=== PATIENT | female | born 1990 | race Two or more races ===

== ENCOUNTER 2025-01-22 11:37 | Outpatient (REF) | payer OTHER, SELFPAY ==
[2025-01-23 09:45] LABS: Bacterial Vaginosis PCR POSITIVE (Negative); Candida Group PCR DETECTED (Not Detect); Candida glab krusei PCR DETECTED (Not Detect); Trichomonas vaginalis PCR NOT DETECTED (Not Detect)
[2025-01-23 10:16] LABS: CT PCR NOT DETECTED (Not Detect.); NG PCR NOT DETECTED (Not Detect.)
== END 2025-01-22 11:38 | disposition home or self-care (01) ==
LOC: HO.LNP 11:37
PROVIDERS: PCP Nurse Practitioner Family; Visit Provider Advanced Practice Midwife
DX: Z01.411 Encounter for gynecological examination (general) (routine) with abnormal findings (principal); B37.31 Acute candidiasis of vulva and vagina
CPT/HCPCS: 81515; 87491; 87591; 99395; 99459

== ENCOUNTER 2025-01-22 11:37 | Outpatient (AMB) | payer OTHER, SELFPAY ==
--- NOTE | 2025-01-22 11:30 | MHC.OFFVIS ---
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 She broke up with a partner that she was trying to have a baby with and she has been dating somebody else for the last 2 months she and this person have talked about possibly having a child together and they might be interested but the relationship is new so she has to see yet she is not contraceptive thing because she is open to . She has been tracking her cycle and she reviewed with me her periods for the last 2 months include the following November 18 to . Her next menses after that was December 09 to . And then her menses after that came January 06 to January 11. So these last 2 cycles were 22 days and 28 days respectively. Reviewed that the alessandro in her phone indicated days of ovulation that did not make sense according to the cycle. She is keeping track of when she has sex but it has not currently been around the time of ovulation. She wants to know if it is normal that she was not able to get and if there is anything wrong with her. Her cycles are more or less regular she is healthy she does work out she tries to take care of herself. 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 She had vaginal itching about a month or so ago and she could not get an appointment with us [facility] and apparently they also gave a cream but she did not use the cream. the fluconazole worked but she is feeling itchy and burny again and she thinks she might have yeast. She is dressed up today for work and her underwear and clothing is 100% nylon. [facility] Medical History (Updated 01/22/25 @ 13:09 by Trina Galarza CNM) delivery delivered No pertinent past medical history Surgical History No pertinent past surgical history Family History (Updated 01/22/25 @ 11:45 by Nimo Joseph MA) Father Depression Mother Depression Cervical cancer Family/Other FH: mental illness Maternal Aunt Breast cancer Social History Housing: Apartment Alcohol intake: former Patient Tobacco Use Status: Never used Tobacco e-Cigarette/Vaping Use: Former Use Substance Use Type: Marijuana Patient : No service: No Current occupational status: unemployed Cognitive needs: No Hearing needs: No Vision needs: No Female Reproductive History Menstrual Age of Menarche: 12 Duration of menses: 3-5 days Date of last menstrual period: 01/06/25 control method: none Total pregnancies: 1 Full term: 1 Date of last pap smear: 01/11/23 (negative pap smear, negative hpv ) Physical Exam Vital Signs: Last Vital Signs BP 112/72 01/22/25 11:48 BMI result Body Mass Index 30.5 Const General: healthy appearing, comfortable, no acute distress, well developed and alert Nutritional Appearance: average body habitus Orientation/consciousness: patient oriented x3 Limitations: no limitations HEENT Head: Yes normocephalic Neck Neck: Yes normal visual inspection Chest Chest palpation & inspection: normal inspection of the chest Breast/axilla inspection: normal inspection of the breasts and normal inspection of the axillae Breast/axilla palpation: normal palpation of the breasts and normal palpation of the axillae Resp Effort & Inspection: normal respiratory effort GI Inspection: Yes normal to inspection, No Abdominal wall edema and No distended Palpation (GI): Soft to palpation and nontender Other: Vulva slightly pink vagina pink and moist and healthy appearing but with white liquidy and curdy discharge totally consistent with yeast infection. Cervix multiparous pink smooth healthy appearing mobile nontender uterus midposition mobile nontender adnexa nontender patient has extremely tight muscle tone and was doing a sit up through the entire visit. (she shared she was visiting with a client right after this and did not want to mess up her hair). General: Yes bladder normal to palpation External Female Exam: normal external appearance and normal appearance of the urethra Speculum Exam - Vagina: normal appearance of the vagina, normal palpation and normal vaginal discharge Speculum Exam - Cervix: normal appearance of the cervix, normal palpation and nontender Bimanual exam- vagina & uterus: normal bimanual exam, normal palpation, uterine size normal, bladder normal to palpation, consistency normal, normal palpation, uterine mobility normal, uterine shape normal, No Cervical tenderness present, non-tender and no cervical motion tenderness Bimanual Exam- Adnexa, other: normal adnexae, no masses, normal and No adnexal tenderness Neuro General: patient oriented x3 Results Reviewed Results Reviewed: Name: Suri Manzanares Age/Sex: 32/F Attending: Trina Galarza CNM : 1990 Submitted by: Trina Galarza CNM Copies to: Madisyn Monsalve NP MR #: [id number] Status: DEP REF Collected: 01/10/23 Location: [facility] Received: 01/11/23 Interpretation Satisfactory for evaluation. Negative for intraepithelial lesion or malignancy. Coccobacilli consistent with shift in vaginal sami. HPV mRNA E6/E7: NOT DETECTED This assay detects E6/E7 viral messenger RNA (mRNA) from 14 high-risk HPV types (16, 18, 31, 33, 35, 39, 45, 51, 52, 56, 58, 59, 66, 68) HPV testing performed by [facility], [place], [place]. See reference laboratory portion of the EMR for entire report. Clinical Information LMP: 01/04/23 Previous PAP test: Unknown Material Received ThinPrep-Cervical Copies To Trina Galarza CNM [address] [place] [address] [place] [address] Madisyn Monsalve [employer] [address] [place] [address] Electronically Signed By: Natalie Zarate 01/15/23 1392 The Pap Test is a screening procedure with the inherent possibility of both false negative and false positive results. Results should be interpreted in the context of historic and current clinical findings. Reliability of the Pap Test is enhanced by performing the test on a regular repetitive basis. Patient: Suri Manzanares Age/Sex: 32/F MR#: [id number] Page 1 of 1 Assessment & Plan Assessment & Plan (1) Sexually active: Category: Social Hx (2) Pap smear for cervical cancer screening: Comment: 01/10/2023 Pap is negative with negative HPV. Code(s): Z12.4 - Encounter for screening for malignant neoplasm of cervix Category: Medical (3) Well woman exam with routine gynecological exam: Code(s): Z01.419 - Encounter for gynecological examination (general) (routine) without abnormal findings Category: Medical (4) Breast cancer screening: Code(s): Z12.39 - Encounter for other screening for malignant neoplasm of breast Category: Medical (5) Family planning counseling: Code(s): Z30.09 - Encounter for other general counseling and advice on contraception Category: Medical (6) Yeast infection of the vagina: Comment: Teaching done as well as prescription for Diflucan and Monistat 7 sent with 1 refill each. Code(s): B37.31 - Acute candidiasis of vulva and vagina Category: Medical Plan -----Discussed in this visit the following: healthy balanced diet, regular and consistent exercise, getting recommended health screens, doing the best she can for her particular health concerns, kegel exercises, pap smear screening and followup recommendations, mammography screening and SBE, normal changes in cycles in her life stage--- .--Discussed that after age 35 the risks of infertility, risks of miscarriage, and chromosomal abnormalities are increased, as well as the risk of complications should she can see if, including diabetes and hypertensive disorders of , pre term delivery and others. I recommend starting vitamins if she has not already started. Discussed that these risks or go up with time. They are much more increased if somebody has any pre-existing conditions. I reviewed her cycles with her her symptoms of ovulation timing of intercourse for optimal success with conception when she feels she and her partner are ready. She has goals of financial security. The relationship is new so she needs to see but I recommend that once she gets to a point of deciding that she is ready and starts trying she should keep careful records and if she does not achieve in 6 months then she should consider seeking fertility services but at this age not to wait too long. In addition I recommend multivitamin with folic acid which all multivitamins have and I told her the brand is not important whenever is more affordable. And I explained why For the yeast I am treating her with Diflucan because that is what she found convenient. I discussed changing out of be very pretty nylon clothing when she can when she is not at work anymore and wearing cotton were going without on these at night if she can she can use a paying letter if she is using the cream but stop use when she is able to. She did not need testing for STIs as [facility] but we did testing today during the visit for gonorrhea chlamydia trichomoniasis bacterial vaginosis and yeast but I am treating her for the yeast reviewed that often times bacterial vaginosis will show up in the test but it does not need to be treated if she is not symptomatic of that in the discharge was not congruent with that at all. Slight blubliness to the discharge could be consistent with trich but it also could be the yeast which was otherwise very evident.) I am also getting her refills on the Diflucan and Monistat 7. Medications: New miconazole nitrate 2% (Miconazole-7) 1 appful vaginal BEDTIME 7 days 45 grams 1RF fluconazole may repeat second dose 72 hrs after first dose if symptoms persist 150 mg PO Q3D 2 doses 2 tabs 1RF Coding Level of Care Code Est Pt Prev Care 18-39y(26590) Diagnoses Sexually active Pap smear for cervical cancer screening Z12.4 Well woman exam with routine gynecological exam Z01.419 Breast cancer screening Z12.39 Family planning counseling Z30.09 Yeast infection of the vagina B37.31
[2025-01-22 11:48] VITALS: BP 112/72; BMI 30.5
== END 2025-01-22 14:42 | disposition home or self-care (01) ==
LOC: HO.HWS 11:37
PROVIDERS: PCP Nurse Practitioner Family; Visit Provider Advanced Practice Midwife
DX: Z01.419 Encounter for gynecological examination (general) (routine) without abnormal findings (principal); B37.31 Acute candidiasis of vulva and vagina
CPT/HCPCS: 99395; 99459